=== PATIENT | female | born 1975 | race Caucasian/White ===

== ENCOUNTER 2019-06-29 09:06 | Observation (INO) ==
[2019-06-29] MEDS ORDERED: ZALEPLON 5 MG CAPSULE PO PRN (09:46)
[2019-06-29] MEDS ORDERED: ALUMINUM/MAGNES/SIMETH MAX STR 30 ML UDCUP PO PRN (09:46)
[2019-06-29] MEDS ORDERED: LACTULOSE 20 GM/30 ML UDCUP PO PRN (09:46)
[2019-06-29] MEDS ORDERED: guaiFENesin/DM ER 600-30 MG TABLET PO PRN (09:46)
[2019-06-29] MEDS ORDERED: BISACODYL 5 MG TABLET PO PRN (09:46)
[2019-06-29] MEDS ORDERED: hydrALAZINE 20 MG/1 ML VIAL IV PRN (09:46)
[2019-06-29] MEDS ORDERED: CALCIUM CARBONATE CHEW 500 MG TABLET PO PRN (09:46)
[2019-06-29] MEDS ORDERED: MAGNESIUM SULF RIDER 2 GM in PREMIX 1 EACH IV PRN (09:46)
[2019-06-29] MEDS ORDERED: ONDANSETRON 4 MG/2 ML VIAL IV PRN (09:46)
[2019-06-29] MEDS ORDERED: diphenhydrAMINE CAP 25 MG CAPSULE PO PRN (09:46)
[2019-06-29] MEDS ORDERED: ACETAMINOPHEN 325 MG TABLET PO PRN (09:46)
[2019-06-29] MEDS ORDERED: SIMETHICONE CHEW 125 MG TABLET PO PRN (09:46)
[2019-06-29] MEDS ORDERED: MAGNESIUM SULF RIDER 4 GM in PREMIX 1 EACH IV PRN (09:46)
[2019-06-29 10:11] LABS: Basophils # 0.1 10*3/uL (0.0-0.2); Basophils % 0.6 % (0.0-0.8); Eosinophils # 0.7 10*3/uL (0.0-0.87); Eosinophils % 6.5 % (0.00-10.9); Hematocrit 36.2 VOL% (35.7-47.0); Hemoglobin 11.5 GM/DL (12.0-16.0); Immature Granulocytes % 0.3 %; Immature Granulocytes Absolute 0.03 #; Lymphocytes % 18.2 % (21.3-54.2); Mean Corpuscular HGB Conc 31.8 GM/DL (32-36); Mean Corpuscular Volume 88.9 FL (87-102); Mean Platelet Volume 11.3 FL (9.6-12.0); Monocytes % 8.5 % (1.7-12.7); Neutrophils % 65.9 % (38.7-73.9); Platelet Count 353 T/CUMM (130-400); Red Blood Count 4.07 MC/CUMM (3.8-5.5); White Blood Count 10.9 T/CUMM (4-12)
[2019-06-29 10:36] LABS: Alanine Aminotransferase 17 U/L (13-56); Albumin 3.2 G/DL (3.4-5.0); Alkaline Phosphatase 153 U/L (45-117); Aspartate Amino Transferase 17 U/L (0-37); Bilirubin,Total < 0.39 MG/DL (0.2-1.0); Blood Urea Nitrogen 69 MG/DL (7-18); Calcium 8.5 MG/DL (8.5-10.1); Estimated Glom Filtration Rate 23 ML/MIN; Glucose 207 MG/DL (74-106); Osmolality,Calculated 293.2 MOS/KG (273-304); Total Protein 7.4 G/DL (6.4-8.3); Troponin I < 0.015 NG/ML (0.00-0.045)
[2019-06-29] MEDS ORDERED: ONDANSETRON 4 MG PO PRN (11:18)
[2019-06-29] MEDS ORDERED: POTASSIUM CHLORIDE RIDER 10 MEQ in PREMIX 1 EACH IV PRN (11:20)
[2019-06-29] MEDS ORDERED: GLUCAGON 1 MG VIAL IM PRN (11:22)
[2019-06-29] MEDS ORDERED: DEXTROSE 10% 250 ML BAG IV PRN (11:22)
[2019-06-29] MEDS: ENOXAPARIN 30 MG/0.3 ML SYRINGE SUBCUT SCH (11:48)
[2019-06-29] MEDS: SODIUM CHLORIDE 0.9% 1,000 ML IV SCH ×2 (11:59→21:26)
[2019-06-29] MEDS ORDERED: FUROSEMIDE 80 MG PO SCH (16:00)
[2019-06-29] MEDS ORDERED: NON-FORMULARY MEDICATION (Pantoprazole [Pantoprazole] 40 MG) PO SCH (21:00)
[2019-06-29] MEDS ORDERED: NON-FORMULARY MEDICATION (Ranolazine [Ranexa] 1,000 MG) PO SCH (21:00)
[2019-06-29] MEDS: PANTOPRAZOLE 40 MG TABLET PO SCH (21:26)
[2019-06-29] MEDS: RANOLAZINE 500 MG TABLET PO SCH (21:26)
[2019-06-29] MEDS: ATORVASTATIN 80 MG TABLET PO SCH (21:26)
[2019-06-30 05:06] LABS: Basophils # 0.1 10*3/uL (0.0-0.2); Basophils % 0.5 % (0.0-0.8); Eosinophils # 0.6 10*3/uL (0.0-0.87); Eosinophils % 6.6 % (0.00-10.9); Hematocrit 33.7 VOL% (35.7-47.0); Hemoglobin 10.6 GM/DL (12.0-16.0); Immature Granulocytes % 0.3 %; Immature Granulocytes Absolute 0.03 #; Lymphocytes # 2.3 10*3/uL (1.4-4.0); Lymphocytes % 24.4 % (21.3-54.2); Mean Corpuscular HGB Conc 31.5 GM/DL (32-36); Mean Corpuscular Volume 88.7 FL (87-102); Mean Platelet Volume 11.9 FL (9.6-12.0); Monocytes % 9.6 % (1.7-12.7); Neutrophils % 58.6 % (38.7-73.9); Platelet Count 353 T/CUMM (130-400); White Blood Count 9.3 T/CUMM (4-12)
[2019-06-30 05:37] LABS: Blood Urea Nitrogen 60 MG/DL (7-18); Calcium 8.5 MG/DL (8.5-10.1); Estimated Glom Filtration Rate 29 ML/MIN; Glucose 124 MG/DL (74-106); HDL Cholesterol 31 MG/DL (40-60); Osmolality,Calculated 296.4 MOS/KG (273-304); Risk Ratio 4.19; Triglycerides 284 MG/DL (2-150); Troponin I < 0.015 NG/ML (0.00-0.045); VLDL CHOLESTEROL 56.8 MG/DL
[2019-06-30] MEDS ORDERED: DIAZEPAM 5 MG TABLET PO ONE ×2 (06:00→08:00)
[2019-06-30] MEDS ORDERED: LEVOTHYROXINE 150 MCG PO SCH (06:00)
[2019-06-30] MEDS ORDERED: diphenhydrAMINE CAP 25 MG CAPSULE PO ONE ×2 (06:00→08:00)
[2019-06-30] MEDS ORDERED: LEVOTHYROXINE 175 MCG TABLET PO SCH (06:30)
[2019-06-30] MEDS: LEVOTHYROXINE 150 MCG TABLET PO SCH (06:43)
[2019-06-30] MEDS ORDERED: LIDOCAINE 1%/EPI INJ 20 ML VIAL ONE (06:51)
[2019-06-30] MEDS ORDERED: HEPARIN/NACL 0.9% 2 UNITS/ML 1,000 ML IV ONE (06:51)
[2019-06-30] MEDS ORDERED: MIDAZOLAM 2 MG/2 ML VIAL ONE ×3 (07:17→07:55)
[2019-06-30] MEDS ORDERED: fentaNYL 100 MCG/2 ML VIAL ONE (07:17)
[2019-06-30] MEDS ORDERED: ENOXAPARIN 60 MG/0.6 ML SYRINGE ONE (07:47)
[2019-06-30] MEDS ORDERED: TIROFIBAN 5,000 MCG/100 ML PREMIX IV ONE (07:48)
[2019-06-30] MEDS ORDERED: TIROFIBAN 5,000 MCG/100 ML PREMIX IV SCH (07:56)
[2019-06-30] MEDS ORDERED: DEXTROSE 50% 25 GM/50 ML VIAL IV ONE (08:00)
[2019-06-30] MEDS ORDERED: TICAGRELOR 90 MG TABLET ONE (08:06)
[2019-06-30] MEDS ORDERED: NITROGLYCERIN SL 0.4 MG TABLET SL ONE (08:16)
[2019-06-30] MEDS ORDERED: NITROGLYCERIN 2% OINT 1 INCH/GM PACK TOP ONE (08:23)
[2019-06-30] MEDS ORDERED: PANTOPRAZOLE 40 MG TABLET PO SCH ×2 (09:00)
[2019-06-30] MEDS ORDERED: CLOPIDOGREL 75 MG PO SCH (09:00)
[2019-06-30] MEDS ORDERED: ASPIRIN 81 MG PO SCH (09:00)
[2019-06-30] MEDS ORDERED: METOPROLOL SUCCINATE 200 MG PO SCH (09:00)
[2019-06-30] MEDS ORDERED: CLOPIDOGREL 75 MG TABLET PO SCH (09:00)
[2019-06-30] MEDS ORDERED: ATORVASTATIN 80 MG PO SCH (09:00)
[2019-06-30] MEDS ORDERED: DEXTROSE 5% NACL 0.45% 1,000 ML IV SCH (10:00)
[2019-06-30] MEDS: SODIUM CHLORIDE 0.9% 1,000 ML IV SCH (10:08)
[2019-06-30] MEDS: PANTOPRAZOLE 40 MG TABLET PO SCH ×2 (10:20→21:32)
[2019-06-30] MEDS: ASPIRIN EC 81 MG TABLET PO SCH (10:20)
[2019-06-30] MEDS: RANOLAZINE 500 MG TABLET PO SCH ×2 (10:21→21:32)
[2019-06-30] MEDS: METOPROLOL SUCCINATE XL 100 MG TABLET PO SCH (10:21)
[2019-06-30] MEDS: ENOXAPARIN 30 MG/0.3 ML SYRINGE SUBCUT SCH (10:28)
[2019-06-30] MEDS: MORPHINE 4 MG/1 ML VIAL IV PRN ×2 (10:48→17:18)
[2019-06-30] MEDS: ONDANSETRON 4 MG TABLET PO PRN ×2 (10:59→17:18)
[2019-06-30] MEDS: TICAGRELOR 90 MG TABLET PO SCH (21:29)
[2019-06-30] MEDS: ATORVASTATIN 80 MG TABLET PO SCH (21:32)
[2019-07-01 02:02] LABS: Basophils # 0.1 10*3/uL (0.0-0.2); Basophils % 0.5 % (0.0-0.8); Eosinophils # 0.6 10*3/uL (0.0-0.87); Eosinophils % 5.3 % (0.00-10.9); Hematocrit 33.4 VOL% (35.7-47.0); Hemoglobin 10.6 GM/DL (12.0-16.0); Immature Granulocytes % 0.5 %; Immature Granulocytes Absolute 0.05 #; Lymphocytes # 1.3 10*3/uL (1.4-4.0); Lymphocytes % 12.2 % (21.3-54.2); Mean Corpuscular HGB Conc 31.7 GM/DL (32-36); Mean Corpuscular Volume 89.1 FL (87-102); Monocytes % 8.6 % (1.7-12.7); Neutrophils % 72.9 % (38.7-73.9); Platelet Count 322 T/CUMM (130-400); Red Blood Count 3.75 MC/CUMM (3.8-5.5); Red Cell Distribution Width 15.1 % (9.3-17.3); White Blood Count 10.9 T/CUMM (4-12)
[2019-07-01 02:35] LABS: Calcium 8.3 MG/DL (8.5-10.1); Osmolality,Calculated 292.7 MOS/KG (273-304)
[2019-07-01 09:08] VITALS: BP 138/64
[2019-07-01] MEDS: ASPIRIN EC 81 MG TABLET PO SCH (09:30)
[2019-07-01] MEDS: PANTOPRAZOLE 40 MG TABLET PO SCH (09:30)
[2019-07-01] MEDS: METOPROLOL SUCCINATE XL 100 MG TABLET PO SCH (09:30)
[2019-07-01] MEDS: RANOLAZINE 500 MG TABLET PO SCH (09:30)
[2019-07-01] MEDS: ENOXAPARIN 30 MG/0.3 ML SYRINGE SUBCUT SCH (09:30)
[2019-07-01] MEDS: LEVOTHYROXINE 150 MCG TABLET PO SCH (09:31)
[2019-07-01] MEDS: TICAGRELOR 90 MG TABLET PO SCH (10:45)
== END 2019-07-01 11:36 | disposition home or self-care (01) ==
LOC: INTOOBSV 09:06 → N.TELEN 09:06
PROVIDERS: ADMIT Internal Medicine Interventional Cardiology; ATTEND Internal Medicine Interventional Cardiology

== ENCOUNTER 2020-07-25 09:00 | Observation (INO) ==
[2020-07-25] MEDS: ENOXAPARIN 40 MG/0.4 ML SYRINGE SUBCUT SCH (10:00)
[2020-07-25] MEDS ORDERED: ALUMINUM/MAGNES/SIMETH MAX STR 30 ML UDCUP PO PRN (10:33)
[2020-07-25] MEDS ORDERED: hydrALAZINE 20 MG/1 ML VIAL IV PRN (10:33)
[2020-07-25] MEDS ORDERED: BISACODYL 5 MG TABLET PO PRN (10:33)
[2020-07-25] MEDS ORDERED: MAGNESIUM SULF RIDER 4 GM in PREMIX 1 EACH IV PRN (10:33)
[2020-07-25] MEDS ORDERED: ZALEPLON 5 MG CAPSULE PO PRN ×2 (10:33→12:30)
[2020-07-25] MEDS ORDERED: SIMETHICONE CHEW 125 MG TABLET PO PRN (10:33)
[2020-07-25] MEDS ORDERED: guaiFENesin/DM ER 600-30 MG TABLET PO PRN (10:33)
[2020-07-25] MEDS ORDERED: CALCIUM CARBONATE CHEW 500 MG TABLET PO PRN (10:33)
[2020-07-25] MEDS ORDERED: ACETAMINOPHEN 325 MG TABLET PO PRN (10:33)
[2020-07-25] MEDS ORDERED: MAGNESIUM SULF RIDER 2 GM in PREMIX 1 EACH IV PRN ×2 (10:33→14:17)
[2020-07-25] MEDS ORDERED: LACTULOSE 20 GM/30 ML UDCUP PO PRN (10:33)
[2020-07-25 10:52] LABS: Basophils # 0.1 10*3/uL (0.0-0.2); Basophils % 0.8 % (0.0-0.8); Eosinophils # 0.6 10*3/uL (0.0-0.87); Eosinophils % 5.8 % (0.00-10.9); Hematocrit 40.7 VOL% (35.7-47.0); Hemoglobin 12.8 GM/DL (12.0-16.0); Immature Granulocytes % 0.4 %; Immature Granulocytes Absolute 0.04 #; Lymphocytes # 2.5 10*3/uL (1.4-4.0); Lymphocytes % 23.8 % (21.3-54.2); Mean Corpuscular HGB Conc 31.4 GM/DL (32-36); Mean Corpuscular Volume 91.7 FL (87-102); Mean Platelet Volume 11.6 FL (9.6-12.0); Monocytes % 9.1 % (1.7-12.7); Neutrophils % 60.1 % (38.7-73.9); Platelet Count 353 T/CUMM (130-400); Red Blood Count 4.44 MC/CUMM (3.8-5.5); Red Cell Distribution Width 14.8 % (9.3-17.3); White Blood Count 10.3 T/CUMM (4-12)
[2020-07-25 11:19] LABS: Albumin 3.7 G/DL (3.4-5.0); Bilirubin,Total 0.4 MG/DL (0.2-1.0); Calcium 9.4 MG/DL (8.5-10.1); Osmolality,Calculated 292.4 MOS/KG (273-304); Potassium 3.7 MMOL/L (3.5-5.1); Total Protein 7.9 G/DL (5.0-7.5)
[2020-07-25] MEDS ORDERED: CIPROFLOXACIN 0.3% OPH SOLN 2.5 ML BOTTLE BOTH EYES SCH (12:30)
[2020-07-25] MEDS ORDERED: METHOCARBAMOL 750 MG TABLET PO PRN (12:30)
[2020-07-25 13:32] LABS: Troponin I < 0.015 NG/ML (0.00-0.045)
[2020-07-25] MEDS ORDERED: POTASSIUM CHLORIDE RIDER 10 MEQ in PREMIX 1 EACH IV PRN (14:17)
[2020-07-25] MEDS: SODIUM CHLORIDE 0.45% 1,000 ML IV SCH ×2 (15:40→23:07)
[2020-07-25] MEDS ORDERED: INSULIN LISPRO 100 UNIT/ML SUBCUT SCH (16:30)
[2020-07-25] MEDS: ONDANSETRON 4 MG/2 ML VIAL IV PRN ×2 (17:04→23:20)
[2020-07-25] MEDS: MORPHINE 4 MG/1 ML VIAL IV PRN ×2 (17:05→23:20)
[2020-07-25] MEDS: NITROGLYCERIN SL 0.4 MG TABLET SL PRN ×2 (18:23→18:28)
[2020-07-25 18:33] LABS: Basophils # 0.1 10*3/uL (0.0-0.2); Basophils % 0.6 % (0.0-0.8); Eosinophils # 0.5 10*3/uL (0.0-0.87); Eosinophils % 5.4 % (0.00-10.9); Hematocrit 39.2 VOL% (35.7-47.0); Hemoglobin 12.3 GM/DL (12.0-16.0); Immature Granulocytes % 0.4 %; Immature Granulocytes Absolute 0.03 #; Lymphocytes # 1.9 10*3/uL (1.4-4.0); Lymphocytes % 23.1 % (21.3-54.2); Mean Corpuscular HGB Conc 31.4 GM/DL (32-36); Mean Corpuscular Volume 91.2 FL (87-102); Mean Platelet Volume 11.9 FL (9.6-12.0); Monocytes % 9.4 % (1.7-12.7); Neutrophils % 61.1 % (38.7-73.9); Platelet Count 341 T/CUMM (130-400); Red Cell Distribution Width 14.8 % (9.3-17.3); White Blood Count 8.3 T/CUMM (4-12)
[2020-07-25 18:54] LABS: Albumin 3.2 G/DL (3.4-5.0); Bilirubin,Total 0.4 MG/DL (0.2-1.0); Calcium 9.2 MG/DL (8.5-10.1); Osmolality,Calculated 295.1 MOS/KG (273-304); Potassium 3.6 MMOL/L (3.5-5.1); Total Protein 7.4 G/DL (5.0-7.5)
[2020-07-25] MEDS: FEBUXOSTAT 80 MG TABLET PO SCH (23:06)
[2020-07-25] MEDS: RANOLAZINE 500 MG TABLET PO SCH (23:06)
[2020-07-25] MEDS: GABAPENTIN 300 MG CAPSULE PO SCH (23:06)
[2020-07-25] MEDS: ASCORBIC ACID 500 MG TABLET PO SCH (23:06)
[2020-07-26] MEDS: SODIUM CHLORIDE 0.45% 1,000 ML IV SCH ×3 (05:28→17:38)
[2020-07-26] MEDS ORDERED: LEVOTHYROXINE 150 MCG TABLET PO SCH (06:00)
[2020-07-26] MEDS: LEVOTHYROXINE 175 MCG TABLET PO SCH (06:10)
[2020-07-26 06:20] LABS: Basophils # 0.1 10*3/uL (0.0-0.2); Basophils % 0.7 % (0.0-0.8); Eosinophils # 0.4 10*3/uL (0.0-0.87); Hematocrit 35.3 VOL% (35.7-47.0); Hemoglobin 11.5 GM/DL (12.0-16.0); Immature Granulocytes % 0.3 %; Immature Granulocytes Absolute 0.02 #; Lymphocytes # 2.3 10*3/uL (1.4-4.0); Mean Corpuscular HGB Conc 32.6 GM/DL (32-36); Mean Corpuscular Volume 90.1 FL (87-102); Mean Platelet Volume 12.5 FL (9.6-12.0); Monocytes % 10.9 % (1.7-12.7); Neutrophils % 52.1 % (38.7-73.9); Platelet Count 282 T/CUMM (130-400); Red Blood Count 3.92 MC/CUMM (3.8-5.5); Red Cell Distribution Width 14.9 % (9.3-17.3); White Blood Count 7.4 T/CUMM (4-12)
[2020-07-26 06:47] LABS: Calcium 8.6 MG/DL (8.5-10.1); Osmolality,Calculated 296.1 MOS/KG (273-304); Potassium 3.3 MMOL/L (3.5-5.1)
[2020-07-26] MEDS ORDERED: HEPARIN/NACL 0.9% 2 UNITS/ML 1,000 ML IV ONE (08:04)
[2020-07-26] MEDS: ONDANSETRON 4 MG/2 ML VIAL IV PRN (08:04)
[2020-07-26] MEDS ORDERED: LIDOCAINE 1%/EPI INJ 20 ML VIAL ONE (08:04)
[2020-07-26] MEDS ORDERED: fentaNYL 100 MCG/2 ML VIAL ONE ×2 (08:08→10:29)
[2020-07-26] MEDS ORDERED: MIDAZOLAM 2 MG/2 ML VIAL ONE ×2 (08:08→10:29)
[2020-07-26] MEDS ORDERED: DIAZEPAM 5 MG TABLET PO ONE (09:00)
[2020-07-26] MEDS ORDERED: diphenhydrAMINE CAP 25 MG CAPSULE PO ONE (09:00)
[2020-07-26] MEDS ORDERED: PANTOPRAZOLE 40 MG TABLET PO SCH (09:00)
[2020-07-26] MEDS: ENOXAPARIN 40 MG/0.4 ML SYRINGE SUBCUT SCH (10:28)
[2020-07-26] MEDS: METOPROLOL SUCCINATE XL 100 MG TABLET PO SCH (10:29)
[2020-07-26] MEDS ORDERED: diphenhydrAMINE 50 MG/1 ML VIAL ONE (10:57)
[2020-07-26 12:13] LABS: Bacteria,Urine Occasional /HPF (Few); Bilirubin,Urine Negative (Negative); Blood, Urine Negative (Negative); Glucose,Urine (UA) Negative (Negative); Hyaline Casts,Urine 6 /LPF (0-3); Ketones,Urine Negative (Negative); Mucus,Urine Occasional /LPF (Occasional); Nitrite,Urine Negative (Negative); Protein,Urine Negative; RBC,Urine <1 /HPF (0-4); Squamous Epithelial Cell,Urine Occasional /HPF (0-10); Urine Appearance CLOUDY (Clear); Urine Color Yellow (Yellow); Urine Specific Gravity 1.012 (1.001-1.035); Urine Urobilinogen < 2.0 EU/DL (0.2-1.0); WBC,Urine 6 /HPF (0-6)
[2020-07-26] MEDS ORDERED: POTASSIUM CHLORIDE 20 MEQ TABLET PO ONE (15:00)
[2020-07-26] MEDS: cycloSPORINE OPH EMUL 1 VIAL BOTH EYES SCH ×2 (16:02→21:58)
[2020-07-26] MEDS: RANOLAZINE 500 MG TABLET PO SCH ×2 (16:02→21:57)
[2020-07-26] MEDS: PANTOPRAZOLE 40 MG TABLET PO SCH ×2 (16:02→21:58)
[2020-07-26] MEDS: ASCORBIC ACID 500 MG TABLET PO SCH ×2 (16:03→21:58)
[2020-07-26] MEDS: MONTELUKAST 10 MG TABLET PO SCH (17:23)
[2020-07-26] MEDS: ASPIRIN EC 81 MG TABLET PO SCH (17:24)
[2020-07-26] MEDS: ATORVASTATIN 80 MG TABLET PO SCH (17:24)
[2020-07-26] MEDS: CLOPIDOGREL 75 MG TABLET PO SCH (17:24)
[2020-07-26] MEDS: GABAPENTIN 300 MG CAPSULE PO SCH (21:57)
[2020-07-26] MEDS: FEBUXOSTAT 80 MG TABLET PO SCH (21:57)
[2020-07-27] MEDS: MORPHINE 4 MG/1 ML VIAL IV PRN (00:30)
[2020-07-27] MEDS: ONDANSETRON 4 MG/2 ML VIAL IV PRN (00:46)
[2020-07-27] MEDS: SODIUM CHLORIDE 0.45% 1,000 ML IV SCH (01:16)
[2020-07-27 06:02] LABS: Basophils # 0.1 10*3/uL (0.0-0.2); Basophils % 0.5 % (0.0-0.8); Eosinophils # 0.4 10*3/uL (0.0-0.87); Eosinophils % 3.9 % (0.00-10.9); Hematocrit 37.3 VOL% (35.7-47.0); Hemoglobin 11.5 GM/DL (12.0-16.0); Immature Granulocytes % 0.3 %; Immature Granulocytes Absolute 0.03 #; Lymphocytes % 21.8 % (21.3-54.2); Mean Corpuscular HGB Conc 30.8 GM/DL (32-36); Mean Corpuscular Volume 93.5 FL (87-102); Mean Platelet Volume 12.5 FL (9.6-12.0); Monocytes % 12.2 % (1.7-12.7); Neutrophils % 61.3 % (38.7-73.9); Platelet Count 293 T/CUMM (130-400); Red Blood Count 3.99 MC/CUMM (3.8-5.5); Red Cell Distribution Width 15.1 % (9.3-17.3); White Blood Count 9.2 T/CUMM (4-12)
[2020-07-27] MEDS: LEVOTHYROXINE 175 MCG TABLET PO SCH (06:25)
[2020-07-27 06:30] LABS: Calcium 8.4 MG/DL (8.5-10.1); Potassium 4.2 MMOL/L (3.5-5.1)
[2020-07-27 08:25] VITALS: BP 126/43
[2020-07-27] MEDS: RANOLAZINE 500 MG TABLET PO SCH (08:48)
[2020-07-27] MEDS: PANTOPRAZOLE 40 MG TABLET PO SCH (08:48)
[2020-07-27] MEDS: MONTELUKAST 10 MG TABLET PO SCH (08:48)
[2020-07-27] MEDS: ASCORBIC ACID 500 MG TABLET PO SCH (08:48)
[2020-07-27] MEDS: ASPIRIN EC 81 MG TABLET PO SCH (08:48)
[2020-07-27] MEDS: METOPROLOL SUCCINATE XL 100 MG TABLET PO SCH (08:48)
[2020-07-27] MEDS: ATORVASTATIN 80 MG TABLET PO SCH (08:48)
[2020-07-27] MEDS: CLOPIDOGREL 75 MG TABLET PO SCH (08:49)
[2020-07-27] MEDS: ENOXAPARIN 40 MG/0.4 ML SYRINGE SUBCUT SCH (08:49)
[2020-07-27] MEDS: cycloSPORINE OPH EMUL 1 VIAL BOTH EYES SCH (08:51)
[2020-07-31] MEDS ORDERED: ERGOCALCIFEROL 50,000 UNIT CAPSULE PO SCH (09:00)
== END 2020-07-27 10:30 | disposition home or self-care (01) ==
LOC: N.TELES
PROVIDERS: ADMIT Internal Medicine Interventional Cardiology; ATTEND Internal Medicine Interventional Cardiology